=== PATIENT | female | born 1955 | race Hispanic/Latino ===

== ENCOUNTER → 2021-12-26 | Outpatient (CLI) | payer OTHER | END | disposition home or self-care (01) | LOC: SHCH 12:39 | PROVIDERS: ATTEND Student in an Organized Health Care Education/Training Program | DX: J44.9 Chronic obstructive pulmonary disease, unspecified (principal); R06.02 Shortness of breath; I31.39 Other pericardial effusion (noninflammatory) | CPT/HCPCS: 93306 ==